=== PATIENT | male | born 1970 | race African-American/Black ===

== ENCOUNTER 2020-08-29 08:58 | Emergency (ER) | payer OTHER ==
[~2020-08-29] VITALS: Ht 175.3 cm; Wt 95.3 kg
--- NOTE | 2020-08-29 09:09 | NUR ---
called patient. Patient not in waiting room.
--- NOTE | 2020-08-29 09:25 | Emergency Room Report ---
History of Present Illness General Chief Complaint: gout flare Source: Patient Present Illness HPI Patient is a 50-year-old male past medical history of hypertension, hyperlipidemia and gout who presents to the ER complaining of gout flare. Patient states that he ate things he was not supposed to last night and started having right ankle pain and swelling. He denies any fever or chills. She denies any trauma. He denies any nausea or vomiting. Patient also complains of a nonproductive cough and a raspy throat for the past 1 to 2 weeks. He denies any shortness of breath or chest pain. He denies any known sick contacts Allergies: Coded Allergies: No Known Allergies (Unverified , 08/29/20) Patient History Reviewed Nursing Documentation: PMH: Agreed; PSxH: Agreed Review of Systems All Other Systems: negative except mentioned in HPI Physical Exam Sp02 EP Interpretation: reviewed, normal General Appearance: no apparent distress, alert, GCS 15, non-toxic Head: normocephalic, atraumatic Eyes: bilateral eye normal inspection, bilateral eye PERRL ENT: hearing grossly normal, normal pharynx, no angioedema, normal voice, uvula midline, moist mucus membranes Neck: full range of motion, supple/symm/no masses Respiratory: chest non-tender, lungs clear, normal breath sounds, speaking full sentences Cardiovascular #1: regular rate, rhythm, no edema Gastrointestinal: normal bowel sounds, non tender, soft, non-distended, no guarding, no rebound, overweight Rectal: deferred Musculoskeletal: other - Right ankle swelling most notably along medial malleolus with normal range of motion warm extremity 2+ pedal pulses Neurologic: pca III-XII nml as tested, oriented x3 Psychiatric: no suicidal/homicidal ideation Skin: no rash Lymphatic: no adenopathy Medical Decision Making Diagnostic Impression: Primary Impression: Gout attack Additional Impression: Cough ER Course Patient given colchicine 0.6 mg x 2 1 hour apart, prednisone and intramuscular Toradol. On reevaluation patient states that his pain is improved. Patient's chest x-ray demonstrates no acute cardiopulmonary pathology. Patient's throat demonstrates no evidence for pharyngitis there is no exudate, swelling or erythema. Patient's COVID-19 PCR is negative. I have given the patient a prescription for azithromycin in case his cough gets worse. Patient be discharged home with prednisone and naproxen. After discussing risks and benefits of further diagnostics, treatment plans, as well as indications for and risks of admission, the patient is agreeable to being discharged home. I have explained that their evaluation and treatment in the emergency department today is an important step towards them achieving better health but that their evaluation today is not intended to replace further evaluation and treatment by a physician in their local clinic. I have explained that while the current findings suggest no immediate life threatening emergency they will require further evaluation and treatment by a physician of their choice in their area. They understand that it will be necessary for them to review the final reports of their ED visit with their clinic physician. We have reviewed indications for return to the Emergency Department. I have explained that additional time may need to pass and/or additional testing as an outpatient may be necessary before a definitive diagnosis can be made. They tell me they are willing to follow up as instructed within the timeframe I recommend. They appear to understand what we discussed. Additionally they understand that if they are unable to be seen by an outpatient physician they are welcome, and in fact should, return to the Emergency Department for a repeat evaluation. The patient is stable at time of discharge. Microbiology Date/Time Source Procedure Growth Status 08/29/20 09:50 Nasopharynx SARS-CoV-2 RdRp Gene Assay - Final Complete Chest X-Ray Diagnostic Results Chest X-Ray Diagnostic Results : Chest X-Ray Ordered: Yes # of Views/Limited/Complete: 1 View Indication: Other - Cough EP Interpretation: Yes Interpretation: no consolidation, no effusion, no pneumothorax Impression: No acute disease Electronically Signed by: Comfort Walker MD Disposition: HOME, SELF-CARE Condition: Stable Scripts Naproxen* (NAPROXEN*) 500 Mg Tablet.dr 500 MG ORAL TWICE A DAY for 14 Days, TAB Prov: Comfort Walker M.D. 08/29/20 Prednisone* (PREDNISONE*) 20 Mg Tablet 60 MG ORAL DAILY, #5 TAB Prov: Comfort Walker M.D. 08/29/20 Azithromycin* (ZITHROMAX*) 250 Mg Tablet 250 MG ORAL DAILY, #6 TAB 0 Refills Take two tables once daily for 1 day, then one tablet once daily for 4 days. Prov: Comfort Walker M.D. 08/29/20 Referrals: [facility] [place],REFERRING (PCP) Additional Instructions: The patient was provided with discharge instructions, notified to follow-up with a primary care doctor and or specialist in the next 24-48 hours, and to return to the ED if they have worsening of their symptoms. Please note that this report is being documented using [employer] technology. This can lead to erroneous entry secondary to incorrect interpretation by the dictating instrument. Comfort Walker M.D. Aug 29, 2020 09:25
[2020-08-29] MEDS ORDERED: Ketorolac 30mg Inj IM ONE (09:30)
[2020-08-29 09:40] VITALS: BP 138/95
--- NOTE | 2020-08-29 09:45 | NUR ---
ED Nurse Note: Patient presents to ER due to bilateral ankle pain, stiffness, "my gout flare up". Patient did not f/u with PCP and ran out of meds. Patient also c/o cough, sore throat x 2 weeks; denies fever, chills. denies any CP, sob, dyspnea or N/V. Patient awake, alert, oriented x 4. Regular, unlabored breathing noted. Patient sitting in chair without facial grimacing or guarding.
--- NOTE | 2020-08-29 10:05 | NUR ---
ED Nurse Note: Report given to CASEY Dumont.
--- NOTE | 2020-08-29 10:26 | Diagnostic Imaging Report ---
Indication: Reason For Exam: COUGH Technique: Single AP view of the chest. Comparison: None. Findings: The heart is mildly enlarged when accounting for projection and technique. There is prominence of the main pulmonary arterial trunk. Increased density in the left lung base is likely secondary to combination of overlapping soft tissue shadows and pericardial fat prominence. No definite airspace consolidation. No pneumothorax or pleural effusion. No acute osseous abnormality. IMPRESSION: 1. No radiographic evidence of acute cardiopulmonary process. 2. Mild cardiomegaly.
[2020-08-29] MEDS ORDERED: ZITHROMAX250 MG ORAL (10:36)
[2020-08-29] MEDS ORDERED: PREDNISONE20 MG ORAL (10:36)
[2020-08-29] MEDS ORDERED: NAPROXEN500 M1 ORAL (10:36)
[2020-08-29 10:50] VITALS: BP 133/76
--- NOTE | 2020-08-29 10:50 | NUR ---
ED Nurse Note: Pt cleared by ERMD for discharge. DC instructions/prescription was given and explained to pt and verbalized understanding of teachings. All medical deviecs such as ID band removed. Pt is AAO x4, ambulatory and left with all personal belongings.
== END 2020-08-29 10:50 | disposition home or self-care (01) ==
LOC: EMR 09:15
DX: M10.9 Gout, unspecified (principal); R05 Cough; Z20.828 Contact with and (suspected) exposure to other viral communicable diseases; I10 Essential (primary) hypertension; E78.5 Hyperlipidemia, unspecified
CPT/HCPCS: 71045; 96372; J1885; J7512; U0002; Z7502; 99283

== ENCOUNTER 2020-09-15 09:48 | Emergency (ER) | payer OTHER ==
[~2020-09-15] VITALS: Ht 175.3 cm; Wt 126.1 kg
[~2020-09-15 09:48] MED LIST: NAPROXEN500 M1 ORAL; PREDNISONE20 MG ORAL; ZITHROMAX250 MG ORAL
[2020-09-15 10:21] VITALS: BP 152/89
--- NOTE | 2020-09-15 10:24 | NUR ---
ED Nurse Note: Pt walked in to ED stated that he needs something to stop him from urinating so much. Pt reports urinating every 5 mins. Pt has hx of enlarge prostate and is currently taking Cardura. nad noted, vss, denies pain.
--- NOTE | 2020-09-15 10:55 | Emergency Room Report ---
History of Present Illness General Chief Complaint: Male Urogenital Problems Source: Patient Present Illness HPI Is a 50-year-old male presents for increased difficulty with urination. Gradual onset of symptoms over the past 10 years. Prior history of enlarged prostate. Denies any hematuria or urinary burning. Denies any penile discharge. Prior history of prostate disease. 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 COVID-19 Screening: Negative COVID-19 COVID-19 Testing Source: clinic Patient History Reviewed Nursing Documentation: PMH: Agreed; PSxH: Agreed Nursing Documentation-PMH Hx Cardiac Problems: Yes - gout, high cholesterol, enlarged prostate Hx Hypertension: Yes Hx Pacemaker: No Hx Asthma: No Hx COPD: No Hx Diabetes: No Hx Cancer: No Hx Gastrointestinal Problems: No Hx Dialysis: No Hx Neurological Problems: No Hx Cerebrovascular Accident: No Hx Seizures: No Physical Exam Vital Signs Date Time Temp Pulse Resp B/P (MAP) Pulse Ox O2 Delivery O2 Flow Rate FiO2 09/15/20 09:55 98.2 78 19 152/89 (110) 98 Room Air Sp02 EP Interpretation: reviewed, normal General Appearance: normal inspection, well appearing, no apparent distress, alert, GCS 15 Head: atraumatic ENT: normal ENT inspection, hearing grossly normal, normal voice Neck: normal inspection, full range of motion, supple, no bony tend Respiratory: normal inspection, no respiratory distress, no wheezing Cardiovascular #1: no edema Gastrointestinal: normal inspection, normal bowel sounds, non tender, soft, no guarding, no hernia Genitourinary: no CVA tenderness Musculoskeletal: normal inspection, back normal, normal range of motion Neurologic: alert, responsive, speech normal, normal inspection Psychiatric: normal inspection, judgement/insight normal, mood/affect normal Medical Decision Making Diagnostic Impression: Primary Impression: Prostate hypertrophy ER Course Patient presented for increased urinary frequency. Differential diagnosis include was not limited to prostate hypertrophy, urinary tract infection, prostate cancer among others. Patient has an overall benign exam. Does not appear to require any imaging studies or laboratory testing at this time. Patient problem appears to be chronic and he is not currently on any medications for his prostate. Patient was given prescription for Flomax. He was advised to follow-up with urology for further evaluation and treatment and possible surgical management. He was advised to return if worse. This medical record is generated with [employer] supervisor mattress and boxsprings software. There may be some supervisor mattress and boxsprings discrepancies related to use of this software Last Vital Signs Date Time Temp Pulse Resp B/P (MAP) Pulse Ox O2 Delivery O2 Flow Rate FiO2 09/15/20 10:21 98.2 19 152/89 98 Room Air 09/15/20 09:55 78 [facility]errals: [facility]ERR[facility] (PCP) Abraham Gaines MD Sep 15, 2020 10:55
[2020-09-15] MEDS ORDERED: FLOMAX0.4 MG ORAL (10:58)
[2020-09-15 11:11] LABS: APPEARANCE,URINE CLEAR; BILIRUBIN, URINE NEGATIVE (NEGATIVE); COLOR,URINE PALE YELLOW; GLUCOSE, URINE (UA) NEGATIVE (NEGATIVE); KETONES,URINE NEGATIVE (NEGATIVE); LEUKOCYTE ESTERASE ,URINE NEGATIVE (NEGATIVE); NITRITE,URINE NEGATIVE (NEGATIVE); PH,URINE 5 (4.5-8.0); PROTEIN,URINE NEGATIVE (NEGATIVE); UROBILINOGEN,URINE NORMAL MG/DL (0.0-1.0)
[2020-09-15 11:39] VITALS: BP 128/66
--- NOTE | 2020-09-15 11:41 | NUR ---
ED Nurse Note: Pt cleared by health care Provider for discharge. DC instructions/prescription was given and explained to pt and verbalized understanding of teachings. All medical devices such as ID band removed. Pt is AAO x4, ambulatory and left with all personal belongings.
== END 2020-09-15 11:42 | disposition home or self-care (01) ==
LOC: EMR 10:45
DX: N40.1 Benign prostatic hyperplasia with lower urinary tract symptoms (principal); R35.0 Frequency of micturition; I10 Essential (primary) hypertension; E78.00 Pure hypercholesterolemia, unspecified
CPT/HCPCS: 81003; Z7502; 99283

== ENCOUNTER 2020-09-20 08:32 | Emergency (ER) | payer OTHER ==
[~2020-09-20] VITALS: Ht 175.3 cm; Wt 122.5 kg
[~2020-09-20 08:32] MED LIST changes: +FLOMAX0.4 MG ORAL
--- NOTE | 2020-09-20 08:51 | Emergency Room Report ---
History of Present Illness General Chief Complaint: Upper Respiratory Illness Source: Patient Present Illness HPI Disclaimer: Please note that this report is being documented using DRAGON technology. This can lead to erroneous entry secondary to incorrect interpretation by the dictating instrument. HPI: 50-year-old male presents for evaluation of cough and fatigue. Symptoms began last night. He reports a nonproductive occasional cough but denies shortness of breath. Subjective fevers. Denies nausea, vomiting, diarrhea, chest pain, wheezing. He reports sore throat nasal congestion and postnasal drip. Sore throat present for several weeks. Denies changes in speech, difficulty swallowing, throat swelling. Tested negative for COVID-19 on 08/29. Denies exposure to other Covid positive people to his knowledge. Has not taken any medication prior to arrival. 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 COVID-19 Screening: Negative COVID-19 COVID-19 Testing Source: a few weeks ago @ [facility] [place] Nursing Documentation-PMH Past Medical History: No History, Except For Hx Cardiac Problems: Yes - gout, high cholesterol, enlarged prostate Hx Hypertension: Yes Hx Pacemaker: No Hx Asthma: No Hx COPD: No Hx Diabetes: No Hx Cancer: No Hx Gastrointestinal Problems: No Hx Dialysis: No Hx Neurological Problems: No Hx Cerebrovascular Accident: No Hx Seizures: No Review of Systems All Other Systems: negative except mentioned in HPI Physical Exam Vital Signs Date Time Temp Pulse Resp B/P (MAP) Pulse Ox O2 Delivery O2 Flow Rate FiO2 09/20/20 08:41 97.9 102 20 152/97 (115) 97 Room Air General: Awake and alert, no acute distress HEENT: NC/AT. EOMI. PERRLA. Uvula midline. Tonsils 2+ and erythematous. Mild edema but no exudate. Normal phonation. Bilateral nontender submandibular lymphadenopathy. Cardiovascular: RRR. S1 and S2 normal. No murmur appreciated Resp: Normal work of breathing. No cough, wheezing or crackles appreciated Skin: Intact. No abrasions, laceration or rash over the exposed skin MSK: Normal tone and bulk. Moving all extremities. No obvious deformity. Neuro: Awake and alert. Mentating appropriately. Medical Decision Making Diagnostic Impression: Primary Impression: Upper respiratory infection ER Course 50-year-old male presents for evaluation of cough and URI symptoms. Differential includes was not limited to viral syndrome, tonsillitis, pharyngitis, COVID-19 infection, pneumonia, bronchitis among others. He is well-appearing, afebrile, no acute distress. Patient has nontender bilateral lymphadenopathy and erythematous tonsils but no exudate and overall has a low Centor score. Do not believe he requires antibiotics at this time. Do not believe he requires emergent labs at this time. Chest x-ray unremarkable. Stable for outpatient follow-up. Instructed to return with new or worsening symptoms. Chest X-Ray Diagnostic Results Chest X-Ray Diagnostic Results : Chest X-Ray Ordered: Yes # of Views/Limited/Complete: 1 View Indication: Other - Cough EP Interpretation: Yes Interpretation: no consolidation, no effusion, no pneumothorax, no acute cardiopulmonary disease Impression: No acute disease Electronically Signed by: Electronically signed by Dr. Teo Belle MD Last Vital Signs Date Time Temp Pulse Resp B/P (MAP) Pulse Ox O2 Delivery O2 Flow Rate FiO2 09/20/20 08:41 97.9 102 20 152/97 (115) 97 Room Air Disposition: HOME, SELF-CARE Condition: Stable Scripts Acetaminophen* (TYLENOL EXTRA STRENGTH*) 500 Mg Tablet 500 MG ORAL Q8H PRN for Prn Headache/Temp > 101, #30 TAB 0 Refills Prov: Teo Belle MD 09/20/20 Teo Belle MD Sep 20, 2020 08:51
[2020-09-20 09:02] VITALS: BP 152/97
[2020-09-20] MEDS ORDERED: TYLENOL EXTRA500 MG ORAL (09:10)
[2020-09-20] MEDS ORDERED: dexAMETHasone 10mg/ml Inj IV ONE (09:15)
[2020-09-20 09:25] VITALS: BP 142/92
--- NOTE | 2020-09-20 10:39 | Diagnostic Imaging Report ---
Procedure: XRAY Chest 1v Reason for study: Reason For Exam: COUGH Comparison films: 08/29/2020. FINDINGS: A single one view chest is obtained. Vascularity is normal. The lung beach are clear bilaterally. Mild cardiomegaly unchanged. CP angles are sharp. The bony thorax appear unremarkable. IMPRESSION: NO ACUTE CARDIOPULMONARY DISEASE.
== END 2020-09-20 09:25 | disposition home or self-care (01) ==
LOC: EMR 08:45
DX: J06.9 Acute upper respiratory infection, unspecified (principal); I10 Essential (primary) hypertension; E78.00 Pure hypercholesterolemia, unspecified; N40.0 Benign prostatic hyperplasia without lower urinary tract symptoms; M10.9 Gout, unspecified
CPT/HCPCS: 71045; 96374; Z7502; 99284